=== PATIENT | male | born 1950 | race African-American/Black ===

== ENCOUNTER 2024-02-02 16:02 | Emergency (ER) | payer OTHER | END 2024-02-02 18:10 | disposition home or self-care (01) | LOC: CSHERS 16:02 | DX: T83.091A Other mechanical complication of indwelling urethral catheter, initial encounter (principal); J44.9 Chronic obstructive pulmonary disease, unspecified; F17.210 Nicotine dependence, cigarettes, uncomplicated | CPT/HCPCS: 99283 ==